=== PATIENT | male | born 1960 ===

== ENCOUNTER 2017-07-23 11:31 | Emergency (ER) | payer OTHER ==
[2017-07-23 11:48] VITALS: BP 125/71; PULSE 68; RESP 20; TEMP 98.7; O2SAT 99
[2017-07-23 11:49] VITALS: BMI 27.9
--- NOTE | 2017-07-23 12:57 | ED PDOC ---
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 Patient reports he had his surgery done by Dr. Timur Cabrales in [place] but has not followed up with the doctor; patient additionally states he has received physical therapy for his pain with minimal relief. Patient states he had an MRI and EMG test done in [place] in November of this year and patient is uncertain of results but was told to take anti-inflammatories and vitamins to help with pain. For the past two weeks, patient states pain has been constant and is the same pain he had in the past; further states back pain started in 1988. The patient states he currently does not have a PCP. He reports taking Tylenol for his pain with no relief. He denies any associated urinary symptoms. Patient offers no additional medical complaints. Past Medical History Reviewed: Historical Data, Nursing Documentation, Vital Signs Vital Signs: Last Vital Signs Temp 98.7 F 07/23/17 11:48 Pulse 68 07/23/17 11:48 Resp 20 07/23/17 11:48 BP 125/71 07/23/17 11:48 Pulse Ox 99 07/23/17 11:48 - Medical History PMH: HTN, Hypercholesterolemia - Surgical History Surgical History: Back Surgery (2012) - Family History Family History: States: No Known Family Hx - Social History Current smoker - smoking cessation education provided: No Alcohol: None Drugs: Denies - Home Medications Home Medications: Ambulatory Orders Medication Instructions Recorded Cyclobenzaprine [Cyclobenzaprine 10 mg PO Q8 PRN #30 tab 07/23/17 HCl] Naproxen [Naprosyn] 500 mg PO BID PRN #30 tab 07/23/17 - Allergies Allergies/Adverse Reactions: Allergies Allergy/AdvReac Type Severity Reaction Status Date / Time No Known Allergies Allergy Verified 07/23/17 11:53 Review of Systems ROS Statement: Except As Marked, All Systems Reviewed And Found Negative Musculoskeletal: Positive for: Back Pain, Leg Pain Physical Exam - Reviewed Nursing Documentation Reviewed: Yes Vital Signs Reviewed: Yes - Physical Exam Appears: Positive for: Non-toxic, No Acute Distress Head Exam: Positive for: ATRAUMATIC, NORMAL INSPECTION, NORMOCEPHALIC Skin: Positive for: Normal Color Eye Exam: Positive for: Normal appearance Neck: Positive for: Normal, Supple Cardiovascular/Chest: Positive for: Regular Rate, Rhythm Respiratory: Positive for: Normal Breath Sounds. Negative for: Accessory Muscle Use, Respiratory Distress Gastrointestinal/Abdominal: Positive for: Normal Exam, Soft. Negative for: Tenderness Back: Positive for: Normal Inspection, Other (bilateral paralumbar tenderness.) . Negative for: L CVA Tenderness, R CVA Tenderness, Vertebral Tenderness Extremity: Positive for: Normal ROM, Other (+ straight leg raise bilaterally). Negative for: Deformity, Swelling Neurologic/Psych: Positive for: Alert, Oriented. Negative for: Motor/Sensory Deficits - ECG O2 Sat by Pulse Oximetry: 99 (RA) Pulse Ox Interpretation: Normal Medical Decision Making Medical Decision Making: Time: 1210 Impression: Chronic low back pain Plan: -- Flexeril 10 mg PO -- Toradol 15 mg IM Time: 1230 -- Patient informed that since his pain is chronic, he will need to follow up with a PCP as well as a back specialist or neurologist for management of his pain. Patient has inquired about disability services and was informed he needs to follow up with a PCP to file for disability. Scribe Attestation: Documented by Soco Enrique acting as a scribe for MARIELA Linton Provider Attestation: All medical record entries made by the Scribe were at my direction and personally dictated by me. I have reviewed the chart and agree that the record accurately reflects my personal performance of the history, physical exam, medical decision making, and the department course for this patient. I have also personally directed, reviewed, and agree with the discharge instructions and disposition. Disposition - Clinical Impression Clinical Impression: Chronic low back pain - Patient ED Disposition Is Patient to be Admitted: No - Disposition Referrals: [facility] [Outside] [facility] [Outside] Disposition: Routine/Home Disposition Time: 13:15 Condition: STABLE Prescriptions: Cyclobenzaprine [Cyclobenzaprine HCl] 10 mg PO Q8 PRN #30 tab PRN Reason: Muscle Spasm Naproxen [Naprosyn] 500 mg PO BID PRN #30 tab PRN Reason: Pain Instructions: Chronic Back Pain (ED) Forms: [employer] (Ukrainian), [employer] (Lithuanian) Print Language: MEXICAN
== END 2017-07-23 13:18 | disposition home or self-care (01) ==
LOC: H.ER 11:31
DX: M54.5 Low back pain (principal)
CPT/HCPCS: 96372; 99283; J1885